=== PATIENT | male | born 1985 | race Hispanic/Latino ===

== ENCOUNTER 2023-07-21 13:46 | Emergency (ER) | payer SELFPAY ==
[2023-07-21 13:51] VITALS: BP 157/112
[2023-07-21 14:00] VITALS: BP 152/107
[2023-07-21 14:01] VITALS: BP 152/107
[2023-07-21 14:08] VITALS: BMI 25.8
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
[2023-07-21 15:00] VITALS: BP 132/95
[2023-07-21 16:06] VITALS: BP 129/98
[2023-07-21 17:00] VITALS: BP 124/92
== END 2023-07-21 17:38 | disposition home or self-care (01) ==
LOC: EMR 13:46
PROVIDERS: EMERGENCY PHYSICIAN Student in an Organized Health Care Education/Training Program
DX: S30.1XXA Contusion of abdominal wall, initial encounter (principal); V13.4XXA Pedal cycle driver injured in collision with car, pick-up truck or van in traffic accident, initial encounter; Y93.55 Activity, bike riding; Y92.410 Unspecified street and highway as the place of occurrence of the external cause
CPT/HCPCS: 99284; 76705